=== PATIENT | female | born 1960 | race Caucasian/White ===

== ENCOUNTER → 2021-07-23 | Outpatient (CLI) | payer MEDICARE ==
[~2021-07-23] MED LIST: ASPIRIN EC81 MG PO; GABAPENTIN300 MG PO; LIPITOR TAB 2020 MG PO; MACROBID 100 M100 MG PO; TYLENOL 325MG325 MG PO; ZOFRAN ODT 4 MG4 MG GT; ZOVIRAX 800 MG800 MG PO
== END ==
LOC: KOH-I 10:18
DX: G51.0 Bell's palsy (principal)
CPT/HCPCS: 70551